=== PATIENT | male | born 1995 | race Caucasian/White ===

== ENCOUNTER → 2017-12-02 | Outpatient (CLI) | payer OTHER | LOC: COL.PUL 11-21 11:00 | DX: R06.02 Shortness of breath (principal) | CPT/HCPCS: J7674 ==

== ENCOUNTER → 2017-12-27 | Outpatient (CLI) | payer OTHER | LOC: COL.VAS 09:35 | DX: R06.02 Shortness of breath (principal) ==

== ENCOUNTER 2021-07-26 02:31 | Emergency (ER) | payer OTHER ==
[~2021-07-26] VITALS: Ht 175.3 cm; Wt 86.4 kg
[2021-07-26 04:29] VITALS: TEMP 98.1
[2021-07-26] MEDS ORDERED: PREDNISONE20 MG PO (04:58)
[2021-07-26 06:00] VITALS: BP 130/61; PULSE 80
== END 2021-07-26 06:02 | disposition home or self-care (01) ==
LOC: COL.ER 02:31
DX: J45.901 Unspecified asthma with (acute) exacerbation (principal); J70.5 Respiratory conditions due to smoke inhalation